=== PATIENT | female | born 1945 | race Caucasian/White ===

== ENCOUNTER 2020-07-18 09:47 | Emergency (ER) | payer MEDICARE, OTHER, SELFPAY ==
[2020-07-18] VITALS (12 sets, daily range): BP systolic 162–199; BP diastolic 70–95; PULSE 68–96; RESP 10–26; TEMP 36.9; O2SAT 97–100; BMI 33.3
--- NOTE | 2020-07-18 09:49 | DI.RAD.S_ITS ---
PROCEDURE: XR CHEST 1V INDICATIONS: Shortness of breath TECHNIQUE: One view of the chest was acquired. COMPARISON: [facility], , CHEST 2 VIEW, 01/06/2016, 16:23. FINDINGS: Surgical changes and devices: None. Lungs and pleura: No pleural effusions or pneumothorax. No acute consolidation. 1.2 cm nodule projects in the left upper lobe Mediastinum: Mediastinal contours appear normal. Heart size is normal. Bones and chest wall: No suspicious bony lesions. Overlying soft tissues appear unremarkable. IMPRESSION: No acute disease. 1.2 cm nodule projecting in the left upper lobe. Recommend further evaluation with CT chest. This could reflect early malignancy or metastatic disease. Dictated by: Konstantin Perez M.D. on 07/18/2020 at 10:38 Approved by: Konstantin Perez M.D. on 07/18/2020 at 10:40
--- NOTE | 2020-07-18 09:58 | ED.GENADULT ---
HPI - General Adult General Chief complaint: Shortness of Breath/Dyspnea Stated complaint: TROUBLE BREATHING, BP GOTTA BE SHANTEL HIGH Time Seen by Provider: 07/18/20 09:48 Source: patient Mode of arrival: Ambulatory Limitations: no limitations History of Present Illness HPI narrative: Patient is a 74-year-old female who states she has no diagnosed medical problems who also does not have a primary care provider here for evaluation of several days/weeks of worsening shortness of breath that is actually been going on for several weeks/months. She denies any fevers. Does have a cough but this is not new for her. This morning she states that she was feeling like her heart was beating fast and she thought that her blood pressure was elevated so she decided to come in this morning for evaluation. She states that she has been thinking about coming to the emergency department for the past couple days and just decided to do so this morning. Related Data Home Medications Medication Instructions Recorded Confirmed beclomethasone dipropionate [Qvar] 2 puff IH BID #0 10/23/15 cyclobenzaprine 10 mg PO SEE INSTRUCTIONS #0 10/23/15 diclofenac sodium 75 mg PO BIDP PRN #0 10/23/15 diltiazem HCl 90 mg PO BID #0 10/23/15 triamterene-hydrochlorothiazid 0.5 cap PO QDAY #0 10/23/15 [Dyazide] Previous Rx's Medication Instructions Recorded P-EPHED HCL/CODEINE/GUAIFEN 5 ml PO QID #200 ml 01/06/16 (Cheratussin DAC) albuterol sulfate [Proventil HFA] 1 puff INH QID #1 inh 01/06/16 albuterol sulfate [Ventolin HFA] 2 puff INH QID #1 ea 03/24/17 azithromycin [Zithromax] 250 - 500 mg PO QDAY #6 tab 03/24/17 beclomethasone dipropionate [Qvar] 1 puff INH BID #1 inh 03/24/17 albuterol sulfate 2 puff INHALATION Q4-6H PRN #18 g 07/18/20 beclomethasone dipropionate [Qvar 1 inh INHALATION BID #10.6 g 07/18/20 RediHaler] lisinopril 10 mg PO DAILY #30 tab 07/18/20 lorazepam [Ativan] 0.5 mg PO BID PRN #10 tab 07/18/20 Allergies Allergy/AdvReac Type Severity Reaction Status Date / Time No Known Drug Allergies Allergy Verified 07/18/20 10:30 Review of Systems Constitutional Constitutional: Denies headache(s) Eyes Eyes: Denies change in vision ENT Ears, Nose, Mouth, and Throat: Denies headache(s) and Denies sore throat Cardiovascular Cardiovascular: Denies chest pain and Reports dyspnea Comments: Feels like her heart was beating hard Respiratory Respiratory: Reports cough (Not new) and Reports dyspnea Gastrointestinal Gastrointestinal: Denies abdominal pain, Reports constipation, Denies nausea and Denies vomiting Genitourinary Genitourinary: Denies dysuria Genitourinary: Denies dysuria Musculoskeletal Comments: Bilateral leg swelling with left being greater than right Integumentary/Breasts Comments: Redness to the left lower extremity a comes and goes Neurologic Neurologic: Denies headache(s) Psychiatric Comments: Anxious about what is going on Hematologic/Lymphatic On Anticoagulants: No Patient History Medical History Patient denies medical problems Surgical History (Updated 07/13/17 @ 05:46 by Conversion Provider) History of cataract removal with insertion of prosthetic lens History of third molar tooth extraction Status post LASIK surgery Family History (Updated 10/23/15 @ 00:00 by Conversion Provider) Sister Age: 77 Hypertension Social History lives independently: Yes Smoking Status: Current every day smoker Exam Initial Vital Signs Initial Vital Signs: Vital Signs Temperature 98.5 F 07/18/20 09:57 Pulse Rate 96 H 07/18/20 09:57 Respiratory Rate 20 07/18/20 09:57 Blood Pressure 199/95 H 07/18/20 09:57 Pulse Oximetry 100 07/18/20 09:57 Const General: cooperative Limitations: mental status not altered HENMT Head: normal to inspection and normocephalic Eyes General: appearance normal, both eyes and all related structures Resp Effort & Inspection: normal respiratory effort Auscultation: clear to auscultation bilaterally Cardio Rate: regular rate Rhythm: regular rhythm GI Inspection: non-distended Skin Other: Patient with mild redness on the distal portion of the left anterior frankel Neuro General: patient alert and patient awake Cognition: normal cognition Speech: speech normal Gait: normal gait Extrem General: capillary refill normal Other: Patient does have bilateral lower extremity swelling with 1+ pitting edema left greater than right Psych Appearance: grossly normal and well kempt Course Orders Ordered: ED Orders 07/18/20 09:49 XR chest 1V Stat EKG-12 Lead Stat 07/18/20 10:04 Complete Blood Count AUTO DIFF Stat Comprehensive Metabolic Panel Stat Lipase Stat NT-proBNP (BNP-Adult 18+) Stat Troponin & CK Cardiac Panel Stat 07/18/20 11:10 CT chest w con Stat Discontinued Medications Lorazepam (Lorazepam 0.5 Mg Tablet) 1 mg PO NOW ONE Stop: 07/18/20 13:06 Last Admin: 07/18/20 13:10 Dose: 1 mg Documented by: HONG Vital Signs Vital signs: Vital Signs - 8 hr 07/18/20 09:57 07/18/20 10:12 07/18/20 10:30 Temperature 98.5 F Pulse Rate 96 H 76 74 Respiratory Rate 20 17 20 Blood Pressure 199/95 H Pulse Oximetry 100 99 98 07/18/20 10:31 07/18/20 11:00 07/18/20 11:01 Temperature Pulse Rate 73 75 77 Respiratory Rate 16 15 26 H Blood Pressure 166/70 H 189/84 H Pulse Oximetry 97 99 99 07/18/20 11:19 07/18/20 11:30 07/18/20 12:00 Temperature Pulse Rate 80 72 70 Respiratory Rate 10 L 11 L 18 Blood Pressure 177/76 H 164/73 H Pulse Oximetry 97 99 98 07/18/20 12:01 07/18/20 12:30 07/18/20 13:30 Temperature Pulse Rate 70 68 76 Respiratory Rate 14 15 Blood Pressure 162/90 H 174/76 H 188/87 H Pulse Oximetry 98 99 98 Medical Decision Making Lab Data Lab results reviewed: Yes I reviewed the patient's lab results. Result diagrams: 07/18/20 10:04 07/18/20 10:04 Labs: Lab Results 07/18/20 07/18/20 Range/Units 10:04 10:04 WBC 9.0 (4.5-11.0) X10^3/uL RBC 4.69 (4.0-5.2) X10^6/uL Hgb 14.5 (12.0-16.0) g/dL Hct 41.8 (36-46) % MCV 89.2 (80-100) fL MCH 30.8 (26-34) PG MCHC 34.6 (30-36) % RDW 13.8 (11.6-14.8) % Plt Count 402 H (150-400) X10^3/uL Neut % (Auto) 60.7 (50-75) % Lymph % (Auto) 31.3 (25-40) % Iron % (Auto) 4.8 (3-14) % Eos % (Auto) 2.5 (2-4) % Baso % (Auto) 0.7 (0-2) % Neut # (Auto) 5400 (7544-1095) /uL Lymph # (Auto) 2800 (4882-4464) /uL Iron # (Auto) 400 (0-900) /uL Eos # (Auto) 200 (0-450) /uL Baso # (Auto) 100 (0-100) /uL Sodium 140 (137-145) mmol/L Potassium 3.9 (3.4-5.1) mmol/L Chloride 106 (98-107) mmol/L Carbon Dioxide 27 (22-32) mmol/L BUN 16 (7-17) mg/dL Creatinine 0.73 (0.52-1.04) mg/dL Estimated GFR > 60.0 (>60) mL/min BUN/Creatinine Ratio 21.9 (6-22) Glucose 124 H (80-110) mg/dL Calcium 9.3 (8.4-10.2) mg/dL Total Bilirubin 0.3 (0.2-1.3) mg/dL AST 34 (14-36) IU/L ALT 26 (<35) IU/L Alkaline Phosphatase 92 (38-126) U/L Total Creatine Kinase 205 H (30-135) U/L CK-MB (CK-2) 3.36 H (<2.37) ng/mL CK-MB (CK-2) Rel Index 1.6 (1.5-5.0) % Troponin I < 0.012 (0.01-0.034) ng/mL NT-Pro-B Natriuret Pep 97 (<125) pg/mL Total Protein 7.6 (6.3-8.2) g/dL Albumin 4.2 (3.5-5.0) g/dL Globulin 3.4 (1.7-4.1) g/dL Albumin/Globulin Ratio 1.2 (1.0-2.8) Lipase 61 (23-300) U/L Imaging Data Chest x-ray: Radiologist's Impression: [address] [id number] ReportSigned Patient: Michelle Devine#: [id number]: 1945cct:[id number]/Sex: 74 / FDate of Service: 07/18/20Loc: EDAccession Number: [id number] Procedure: XR chest 1V Ordering Provider: Sudeep Macias D.O. PROCEDURE: XR CHEST 1V INDICATIONS: Shortness of breath TECHNIQUE: One view of the chest was acquired. COMPARISON: [facility], CHEST 2 VIEW, 01/06/2016, 16:23. FINDINGS: Surgical changes and devices: None. Lungs and pleura: No pleural effusions or pneumothorax. No acute consolidation. 1.2 cm nodule projects in the left upper lobe Mediastinum: Mediastinal contours appear normal. Heart size is normal. Bones and chest wall: No suspicious bony lesions. Overlying soft tissues appear unremarkable. IMPRESSION: No acute disease. 1.2 cm nodule projecting in the left upper lobe. Recommend further evaluation with CT chest. This could reflect early malignancy or metastatic disease. Dictated by: Konstantin Perez M.D. on 07/18/2020 at 10:38 Approved by: Konstantin Perez M.D. on 07/18/2020 at 10:40 CT scan - chest: Radiologist's Impression: [address] [id number] Scan ReportSigned Patient: Michelle Devine#: [id number]: 7Acct:[id number]/Sex: 74 / FDate of Service: 07/18/20Loc: EDAccession Number: [id number] Procedure: CT chest w con Ordering Provider: Sudeep Macias D.O. PROCEDURE: CT CHEST W CON INDICATIONS: nodule seen on CXR TECHNIQUE: After the administration of intravenous contrast, 5 mm thick sections acquired from the pulmonary apices to the posterior costophrenic angles. 1 mm axial lung, 5 mm thick coronal and sagittal reformats and 7 mm axial MIP were acquired. For radiation dose reduction, the following was used: automated exposure control, adjustment of mA and/or kV according to patient size. COMPARISON: [facility], CR, XR CHEST 1V, 07/18/2020, 9:52. FINDINGS: Lungs: Diffuse emphysema is seen. Scattered subsegmental atelectasis and/or scarring. No focal consolidation. Airway thickening in keeping with nonspecific bronchitis and/or reactive airways disease. 1.4 cm nodule seen in the left upper lobe corresponding to the radiographic appearance. Pleura: No pleural effusion or pneumothorax. Heart: Heart size is normal. No pericardial effusion. Moderate coronary artery catheter sclerosis. Chest nodes: Normal. Thyroid gland: Negative Aorta: Normal. Pulmonary arteries: Normal Esophagus: Possible trace hiatal hernia. Upper abdomen: Hepatic steatosis Bones: Normal. IMPRESSION: 1.4 cm in left upper lobe pulmonary nodule in keeping with the radiographic appearance. This is suspicious for bronchogenic malignancy. Background chronic emphysema. Dictated by: Konstantin Perez M.D. on 07/18/2020 at 12:14 Approved by: Konstantin Perez M.D. on 07/18/2020 at 12:20 ECG Data Attestation: I personally reviewed and interpreted this ECG as follows: Prior ECG tracings: not available for review Interpretation: Sinus rhythm Ventricular rate is 76 Normal axis Normal QRS Normal QTC No ST T wave changes MDM Narrative Medical decision making narrative: Patient was hypertensive and remained hypertensive during her time here in the emergency department. Because of this I do feel that he to start her on antihypertensive medication. She does not carry a definitive diagnosis of COPD but does have a significant smoking history. She has been on QVAR and albuterol in the past which he states has helped her symptoms that she would like to go back on this medication. It will provide a prescription for these as well. I have low suspicion for ACS. Her chest x-ray today was concerning for a right-sided nodule on the CT scan is also concerning for malignancy. She does not have a primary doctor. I did talk with the primary care group here in the area and they are going to contact her with primary doctor in a follow-up within the next couple days. I discussed this with the patient and she was also provided with air information. I feel patient could be discharged home she was informed of the concerns found on the CT scan. She was given return precautions and follow-up instructions. She expressed understanding agreement. Discharge Plan Departure Patient Disposition: Home Clinical Impression: Hypertension, Shortness of breath, Lung nodule Instructions: Essential Hypertension Activity Restrictions/Additional Instructions: I did discuss her case with the [facility]. Their phone number is [phone]. They should be calling you within the next several days to get you in to see a new primary provider. This is important given the findings that we found on the CT scan today. Medications were sent to the [facility] here and [place]. Take them as directed. Take her blood pressure at home like we discussed. Return to the emergency department for any new or worsening symptoms. Prescriptions: New Qvar RediHaler 80 mcg/actuation HFA aerosol breath activated 1 inh inhalation BID Qty: 10.6 RF: 0 albuterol sulfate 90 mcg/actuation HFA aerosol inhaler 2 puff inhalation Q4-6H PRN (Reason: shortness of breath or wheezing) Qty: 18 RF: 0 lorazepam [Ativan] 0.5 mg tablet 0.5 mg PO BID PRN (Reason: anxiety) Qty: 10 RF: 0 lisinopril 10 mg tablet 10 mg PO DAILY Qty: 30 RF: 0 No Action triamterene-hydrochlorothiazid [Dyazide] 37.5 MG/25 MG capsule 0.5 cap PO QDAY Qty: 0 RF: 0 beclomethasone dipropionate [Qvar] 80 MCG/PUFF aerosol 2 puff IH BID Qty: 0 RF: 0 diltiazem HCl 90 MG capsule,extended release 12 hr 90 mg PO BID Qty: 0 RF: 0 diclofenac sodium 75 MG tablet,delayed release (DR/EC) 75 mg PO BIDP PRNQty: 0 RF: 0 cyclobenzaprine 10 MG tablet 10 mg PO SEE INSTRUCTIONS Qty: 0 RF: 0 albuterol sulfate [Proventil HFA] 90 MCG/PUFF HFA aerosol inhaler 1 puff INH QID Qty: 1 RF: 1 P-EPHED HCL/CODEINE/GUAIFEN (Cheratussin DAC) 5 ml PO QID Qty: 200 RF: 0 azithromycin [Zithromax] 250 MG tablet 250 - 500 mg PO QDAY Qty: 6 RF: 0 beclomethasone dipropionate [Qvar] 80 MCG/PUFF aerosol 1 puff INH BID Qty: 1 RF: 0 albuterol sulfate [Ventolin HFA] 90 MCG/PUFF HFA aerosol inhaler 2 puff INH QID Qty: 1 RF: 0
[2020-07-18 10:15] LABS: Add Manual Diff / Slide Review NO; Basophils Absolute Auto 100 /uL (0-100); Basophils Percent Auto 0.7 % (0-2); Eosinophils Absolute Auto 200 /uL (0-450); Eosinophils Percent Auto 2.5 % (2-4); Hematocrit 41.8 % (36-46); Hemoglobin 14.5 g/dL (12.0-16.0); Lymphocytes Absolute Auto 2800 /uL (1100-4500); Lymphocytes Percent Auto 31.3 % (25-40); Mean Corpuscular HGB Conc 34.6 % (30-36); Mean Corpuscular Hemoglobin 30.8 PG (26-34); Mean Corpuscular Volume 89.2 fL (80-100); Monocytes Absolute Auto 400 /uL (0-900); Monocytes Percent Auto 4.8 % (3-14); Neutrophils Absolute Auto 5400 /uL (1500-7000); Neutrophils Percent Auto 60.7 % (50-75); Platelet Count 402 X10^3/uL (150-400); Red Blood Cell Count 4.69 X10^6/uL (4.0-5.2); Red Cell Distribution Width 13.8 % (11.6-14.8)
[2020-07-18 10:26] LABS: Alanine Aminotransferase 26 IU/L (<35); Albumin 4.2 g/dL (3.5-5.0); Albumin Globulin Ratio 1.2 (1.0-2.8); Alkaline Phosphatase 92 U/L (38-126); Aspartate Aminotransferase 34 IU/L (14-36); BUN Creatinine Ratio 21.9 (6-22); Bilirubin Total 0.3 mg/dL (0.2-1.3); Blood Urea Nitrogen 16 mg/dL (7-17); Calcium 9.3 mg/dL (8.4-10.2); Carbon Dioxide 27 mmol/L (22-32); Chloride 106 mmol/L (98-107); Creatine Kinase 205 U/L (30-135); Estimated Glomerular Filt Rate > 60.0 mL/min (>60); Globulin 3.4 g/dL (1.7-4.1); Glucose 124 mg/dL (80-110); HEMOLYSIS < 15 (0-50); Lipase 61 U/L (23-300); Potassium 3.9 mmol/L (3.4-5.1); Sodium 140 mmol/L (137-145); Total Protein 7.6 g/dL (6.3-8.2)
[2020-07-18 10:38] LABS: NT-proBNP (BNP-Adult 18+) 97 pg/mL (<125); Troponin I < 0.012 ng/mL (0.01-0.034)
[2020-07-18 10:42] LABS: CKMB % Relative Index 1.6 % (1.5-5.0); Creatine Kinase MB 3.36 ng/mL (<2.37)
--- NOTE | 2020-07-18 11:10 | DI.CT.S_ITS ---
PROCEDURE: CT CHEST W CON INDICATIONS: nodule seen on CXR TECHNIQUE: After the administration of intravenous contrast, 5 mm thick sections acquired from the pulmonary apices to the posterior costophrenic angles. 1 mm axial lung, 5 mm thick coronal and sagittal reformats and 7 mm axial MIP were acquired. For radiation dose reduction, the following was used: automated exposure control, adjustment of mA and/or kV according to patient size. COMPARISON: [facility], CR, XR CHEST 1V, 07/18/2020, 9:52. FINDINGS: Lungs: Diffuse emphysema is seen. Scattered subsegmental atelectasis and/or scarring. No focal consolidation. Airway thickening in keeping with nonspecific bronchitis and/or reactive airways disease. 1.4 cm nodule seen in the left upper lobe corresponding to the radiographic appearance. Pleura: No pleural effusion or pneumothorax. Heart: Heart size is normal. No pericardial effusion. Moderate coronary artery catheter sclerosis. Chest nodes: Normal. Thyroid gland: Negative Aorta: Normal. Pulmonary arteries: Normal Esophagus: Possible trace hiatal hernia. Upper abdomen: Hepatic steatosis Bones: Normal. IMPRESSION: 1.4 cm in left upper lobe pulmonary nodule in keeping with the radiographic appearance. This is suspicious for bronchogenic malignancy. Background chronic emphysema. Dictated by: Konstantin Perez M.D. on 07/18/2020 at 12:14 Approved by: Konstantin Perez M.D. on 07/18/2020 at 12:20
[2020-07-18] MEDS: LORazepam 0.5 MG TABLET 1 MG PO (13:10)
== END 2020-07-18 13:30 | disposition home or self-care (01) ==
PROVIDERS: Emergency Provider Emergency Medicine
DX: I10 Essential (primary) hypertension (principal); R05 Cough; R06.02 Shortness of breath; R91.1 Solitary pulmonary nodule
CPT/HCPCS: 36415; 71045; 71260; 80053; 82550; 82553; 83690; 83880; 84484; 85025; 93005; 99283; 99284

== ENCOUNTER 2020-07-25 12:19 | Emergency (ER) | payer MEDICARE, OTHER, SELFPAY ==
[2020-07-25 12:25] VITALS: BP 163/74; PULSE 91; RESP 14; TEMP 37; O2SAT 98; BMI 33.5
[2020-07-25 12:48] VITALS: BP 146/67
== END 2020-07-25 14:13 | disposition left against medical advice (07) ==
PROVIDERS: Emergency Provider Emergency Medicine; PCP Student in an Organized Health Care Education/Training Program
CPT/HCPCS: 99281

== ENCOUNTER → 2020-07-31 09:46 | Outpatient (CLI) | payer MEDICARE, OTHER, SELFPAY | PROVIDERS: PCP Student in an Organized Health Care Education/Training Program; Referring Provider Student in an Organized Health Care Education/Training Program; Visit Provider Student in an Organized Health Care Education/Training Program | DX: M85.851 Other specified disorders of bone density and structure, right thigh (principal); Z13.820 Encounter for screening for osteoporosis; Z78.0 Asymptomatic menopausal state; Z72.0 Tobacco use | CPT/HCPCS: 77080 ==

== ENCOUNTER → 2020-08-30 08:50 | Outpatient (CLI) | payer MEDICARE, OTHER, SELFPAY ==
[2020-08-30 10:02] LABS: COVID19 -Nasal RAPID Negative (Negative)
== END ==
PROVIDERS: PCP Student in an Organized Health Care Education/Training Program; Referring Provider Student in an Organized Health Care Education/Training Program; Visit Provider Student in an Organized Health Care Education/Training Program
DX: Z20.822 Contact with and (suspected) exposure to COVID-19 (principal)
CPT/HCPCS: 87635; C9803

== ENCOUNTER → 2020-08-30 09:47 | Outpatient (CLI) | payer MEDICARE, OTHER, SELFPAY ==
[2020-08-30 11:41] LABS: BUN Creatinine Ratio 25.7 (6-22); Blood Urea Nitrogen 26 mg/dL (7-17); Calcium 10.1 mg/dL (8.4-10.2); Carbon Dioxide 28 mmol/L (22-32); Chloride 102 mmol/L (98-107); Cholesterol 176 mg/dL (140-199); Estimated Glomerular Filt Rate 53.6 mL/min (>60); Glucose 118 mg/dL (80-110); HDL Cholesterol 55 mg/dL (40-60); HEMOLYSIS < 15 (0-50); LDL Cholesterol Calculated 101 mg/dL (<100); Potassium 4.3 mmol/L (3.4-5.1); Sodium 137 mmol/L (137-145); Triglycerides 101 mg/dL (35-150)
== END ==
PROVIDERS: PCP Student in an Organized Health Care Education/Training Program; Referring Provider Student in an Organized Health Care Education/Training Program; Visit Provider Student in an Organized Health Care Education/Training Program
DX: I10 Essential (primary) hypertension (principal); Z13.220 Encounter for screening for lipoid disorders
CPT/HCPCS: 36415; 80048; 80061

== ENCOUNTER → 2020-08-30 09:51 | Outpatient (CLI) | payer MEDICARE, OTHER, SELFPAY ==
--- NOTE | 2020-09-06 08:40 | PM.PFT.1 ---
Pulmonary Function Test Referral & Results Date Patient Seen: 08/30/20 Requesting provider: Pj Grubbs Results: The spirometry demonstrates an FVC of 3.19 L which is 102% of predicted. The FEV1 was measured at 1.49 L which is 63% of predicted. The FEV1/FVC ratio was 47 which is 62% of predicted. Following the administration of bronchodilator there was a 20% improvement in FEF 25-75%. Lung volumes show an SVC of 3.78 L which is 126% of predicted. The diffusing capacity was measured at 23.03 which is 85% of predicted. The maximum voluntary ventilation was reduced Interpretation: This study demonstrates moderate severe obstructive lung disease based on reduction FEV1 and FEV1/FVC ratio. There is only very limited evidence of benefit following bronchodilator based on 20% improvement in FEF 25-75% as above suggesting only small airway improvement Lung volumes are normal There is a minimal reduction diffusing capacity suggesting the possibility of disease at the capillary alveolar level as well Clinical correlation suggested
== END ==
PROVIDERS: PCP Student in an Organized Health Care Education/Training Program; Referring Provider Student in an Organized Health Care Education/Training Program; Visit Provider Student in an Organized Health Care Education/Training Program
DX: R06.02 Shortness of breath (principal); J98.8 Other specified respiratory disorders; Z13.220 Encounter for screening for lipoid disorders; I10 Essential (primary) hypertension; F17.210 Nicotine dependence, cigarettes, uncomplicated; Z20.822 Contact with and (suspected) exposure to COVID-19
CPT/HCPCS: 36415; 80048; 80061; 87635; 94060; 94726; 94729; C9803

== ENCOUNTER 2020-09-02 08:03 | Day surgery (SDC) | payer MEDICARE, OTHER, SELFPAY ==
[2020-09-02 09:20] VITALS: BP 108/70; PULSE 96; RESP 16; TEMP 36.5; O2SAT 98; BMI 33.5
[2020-09-02] MEDS: LACTATED RINGERS 1,000 ML 200 ML IV (09:29)
--- NOTE | 2020-09-02 10:27 | PM.HP.1 ---
History of Present Illness History of Present Illness Date Patient Seen: 09/02/20 Time Patient Seen: 10:27 Chief complaint: SDC Narrative: The patient presents for colorectal sreening. She had a previous colonoscopy greater than 10 years ago which was significant for benign polyps.. No personal or family history of colon cancer. On further history denies any recent gastrointestinal symptoms. No nausea, vomiting, abdominal pain, loss of appetite, unexplained weight loss, change in bowel habits, diarrhea, constipation, melena, hematochezia, or bright red blood per rectum. Patient History Medical History Abnormal chest xray Acne Asthma Chicken pox Chronic cough Measles Mumps Patient denies medical problems Plantar warts (~2018) Surgical History History of cataract removal with insertion of prosthetic lens (~1998) History of third molar tooth extraction Skin cancer, basal cell (~2014) Status post LASIK surgery Family & Social History Family History Sister Age: 77 Hypertension Mother Diabetes mellitus History of heart disease Social History: household members none lives independently Yes Tobacco & Substance use: Tobacco type cigarettes Smoking Status Current every day smoker alcohol intake current alcohol intake frequency holiday/special occasion Substance Use Type does not use Meds Home Medications and Allergies Home Medications Medication Instructions Recorded Confirmed Type cyclobenzaprine 10 mg PO SEE INSTRUCTIONS #0 10/23/15 09/02/20 History diclofenac sodium 75 mg 75 mg PO QWEEK PRN #0 tab MDD 177 07/22/20 09/02/20 History tablet,delayed release ml lisinopril 20 mg tablet 20 mg PO BID #180 tab 08/14/20 09/02/20 Rx lorazepam 0.5 mg tablet 0.5 mg PO BID PRN #30 tab 08/15/20 09/02/20 Rx beclomethasone dipropionate 80 1 inh INHALATION BID #10.6 g 08/19/20 09/02/20 Rx mcg/actuation HFA breath activated aerosol albuterol sulfate 90 mcg/actuation 2 puff INHALATION Q4-6H PRN #18 g 08/26/20 09/02/20 Rx aerosol inhaler buspirone 10 mg tablet 10 mg PO BID #60 tab 08/26/20 09/02/20 Rx Allergies Allergy/AdvReac Type Severity Reaction Status Date / Time No Known Drug Allergies Allergy Verified 09/02/20 09:08 Review of Systems Review of Systems ROS: Yes All systems reviewed with the patient and are negative except as otherwise documented Exam Vital Signs (past 8 hours): - 09/02/20 09:20 Temperature 97.7 F Pulse Rate 96 H Respiratory Rate 16 Blood Pressure 108/70 Pulse Oximetry 98 Oxygen Delivery Method Room Air Narrative Exam Narrative: GENERAL-well developed adult female, no acute distress HEENT-no scleral icterus, hearing intact NECK-no JVD, trachea midline CVS- regular rate, no peripheral edema RESP-unlabored respiratory effort, no audible wheezing GI-soft, nontender nondistended MSK-no cyanosis or clubbing, extremities without deformity SKIN-warm, dry NEURO-alert and oriented, no focal deficits PYSCH-Appropriate mood and affect Assessment & Plan Assessment & Plan narrative: The patient requires colorectal screening and colonoscopy is recommended. Technical details were discussed. Risks, benefits, alternatives explained. Risks including but not limited to myocardial infarction, aspiration, bleeding, pain, missed lesion, incomplete examination, need for further radiographic studies, colonic perforation, and need for major abdominal surgery were discussed. All questions were answered to their satisfaction, and they are in agreement with this plan.
[2020-09-02] MEDS: fentaNYL 250 MCG/5 ML INJ IV (10:40)
[2020-09-02] MEDS: MIDAZOLAM 5 MG/5 ML VIAL IV (10:45)
--- NOTE | 2020-09-02 10:58 | PM.OP.ENDO ---
Operative Date/Time/Diagnoses Date of procedure: 09/02/20 Time of procedure: 10:58 Pre-op diagnosis: personal history of colonic polyps Post-op diagnosis: same Procedure & Clinicians Study performed: colonoscopy Same procedure as scheduled: Yes Indications: personal history of colonic polyps Surgeon: Austyn Lee Procedure Notes Procedure in detail: Medications: Conscious sedation using 9mg IV midazolam and 150mcg IV of fentanyl The history and physical was performed/updated and the patient is ASA class is 2. The procedure was discussed in detail with the patient. Potential risks complications including infection, bleeding, missed diagnosis, perforation, need for surgery, and were explained. Their questions were answered and informed consent was obtained. Patient was brought to the procedure room and placed standard monitoring equipment. The patient's vital signs were monitored continuously throughout the entire procedure. Prior to starting time-out was performed. The patient was placed in the left lateral recumbent position. Procedural sedation was administered. Examination began with a thorough inspection of the perianal area there was no evidence of fissures, fistulae, external hemorrhoids or cutaneous malignancy. The colonoscopy scope was then placed into the anal canal and was advanced to the cecum, which was identified by the ileocecal valve, the appendiceal orifice and the confluence of the taenia. The scope was then slowly withdrawn examining colon thoroughly in all directions, irrigating it of any residual stool. 1. no masses or polyps 2. sigmoid diverticulosis, tortuous colon 3. grade 2 hemorrhoids The patient tolerated the procedure well. They will be discharged once criteria are met. The prep was of good/excellent quality. The withdrawl time was 6 minutes. The sedation time was 20 minutes. Specimen(s): none sent Complications: none Impression: normal colonoscopy Post-procedure Recommendations: Colonscopy in 10 years Disposition: same day surgery
[2020-09-02 11:00] VITALS: BP 103/45; PULSE 78; RESP 16; TEMP 36.3; O2SAT 98
[2020-09-02 11:05] VITALS: BP 106/47; PULSE 78; RESP 15; O2SAT 94
[2020-09-02 11:08] VITALS: BP 102/44; PULSE 79; RESP 12; O2SAT 96
[2020-09-02 11:15] VITALS: BP 92/43; PULSE 77; RESP 13; TEMP 36.2; O2SAT 99
[2020-09-02 11:18] VITALS: BP 98/47; PULSE 76; RESP 16; TEMP 36.5; O2SAT 98
== END 2020-09-02 11:40 | disposition home or self-care (01) ==
PROVIDERS: PCP Student in an Organized Health Care Education/Training Program; Referring Provider Surgery; Visit Provider Surgery
PROC: 0DJD8ZZ Inspection of Lower Intestinal Tract, Via Natural or Artificial Opening Endoscopic (ICD-10-PCS; CPT 45378; principal; 2020-09-02 10:00)
DX: Z12.11 Encounter for screening for malignant neoplasm of colon (principal); Z86.010 Personal history of colon polyps; J45.909 Unspecified asthma, uncomplicated; K57.30 Diverticulosis of large intestine without perforation or abscess without bleeding; K64.1 Second degree hemorrhoids
CPT/HCPCS: G0105; 99152; J2250; J3010

== ENCOUNTER → 2020-09-11 10:04 | Outpatient (CLI) | payer MEDICARE, OTHER, SELFPAY ==
--- NOTE | 2020-09-11 10:05 | DI.MG.S_ITS ---
BILATERAL DIGITAL SCREENING MAMMOGRAM 3D/2D WITH CAD: 09/11/2020 CLINICAL: Routine screening. No prior exams were available for comparison. The tissue of both breasts is heterogeneously dense. This may lower the sensitivity of mammography. Current study was also evaluated with a Computer Aided Detection (CAD) system. There are linear segmental fine punctate calcifications in the left breast central to the nipple middle depth. No other significant masses, calcifications, or other findings are seen in either breast. IMPRESSION: INCOMPLETE: NEEDS ADDITIONAL IMAGING EVALUATION The linear segmental fine punctate calcifications in the left breast are indeterminate. Mediolateral, spot magnification, and additional views are recommended. This exam was interpreted at Station ID: [id number]. NOTE: For mammograms, a report in lay terms will be sent to the patient. Approximately 15% of breast malignancies will not be visualized mammographically. In the management of a palpable breast mass, a negative mammogram must not discourage biopsy of a clinically suspicious lesion. Electronically Signed By: Levon gross/meenu:09/11/2020 10:50:07 letter sent: Additional Imaging Needed ACR BI-RADS Category 0: Incomplete [id number]
== END ==
PROVIDERS: PCP Student in an Organized Health Care Education/Training Program; Referring Provider Student in an Organized Health Care Education/Training Program; Visit Provider Student in an Organized Health Care Education/Training Program
DX: Z12.31 Encounter for screening mammogram for malignant neoplasm of breast (principal)
CPT/HCPCS: 77063; 77067

== ENCOUNTER → 2020-10-03 08:40 | Outpatient (CLI) | payer MEDICARE, OTHER, SELFPAY ==
--- NOTE | 2020-10-03 | DI.MG.S_ITS ---
UNILATERAL LEFT DIGITAL DIAGNOSTIC MAMMOGRAM 3D/2D WITH ADDITIONAL VIEWS: 10/03/2020 CLINICAL: Additional evaluation requested from prior study. Comparison is made to exam dated: 09/11/2020 [facility]. The tissue of left breast is heterogeneously dense. This may lower the sensitivity of mammography. There are segmental scattered, fine punctate, some rodlike calcifications in the left breast central to the nipple middle depth. No other significant masses or calcifications are seen in the breast. IMPRESSION: PROBABLY BENIGN The calcifications in the left breast resemble secretory calcifications, fibrocystic change, and sclerosing adenosis and are probably benign. A follow-up left mammogram in 6 months is recommended to demonstrate stability. Findings and recommendations were conveyed to the patient at time of exam. This exam was interpreted at Station ID: [id number]. NOTE: For mammograms, a report in lay terms will be sent to the patient. Approximately 15% of breast malignancies will not be visualized mammographically. In the management of a palpable breast mass, a negative mammogram must not discourage biopsy of a clinically suspicious lesion. Electronically Signed By: Lilliana fajardo/:10/03/2020 09:08:14 letter sent: Followup Recommended ACR BI-RADS Category 3: Probably benign 3343F
== END ==
PROVIDERS: PCP Student in an Organized Health Care Education/Training Program; Referring Provider Student in an Organized Health Care Education/Training Program; Visit Provider Student in an Organized Health Care Education/Training Program
DX: R92.8 Other abnormal and inconclusive findings on diagnostic imaging of breast (principal); R92.1 Mammographic calcification found on diagnostic imaging of breast
CPT/HCPCS: 77065; G0279

== ENCOUNTER → 2021-07-10 11:56 | Outpatient (CLI) | payer MEDICARE, OTHER, SELFPAY ==
[2021-07-10 13:32] LABS: Hemoglobin A1C% w Est Avg Glu 6.2 % (4.0-6.0)
[2021-07-10 13:37] LABS: BUN Creatinine Ratio 27.7 (6-22); Blood Urea Nitrogen 23 mg/dL (7-17); Calcium 9.2 mg/dL (8.4-10.2); Carbon Dioxide 28 mmol/L (22-32); Chloride 107 mmol/L (98-107); Cholesterol 192 mg/dL (140-199); Estimated Glomerular Filt Rate > 60 mL/min (>60); Glucose 102 mg/dL (80-110); HDL Cholesterol 59 mg/dL (40-60); HEMOLYSIS < 15 (0-50); LDL Cholesterol Calculated 118 mg/dL (<100); Potassium 4.1 mmol/L (3.4-5.1); Sodium 140 mmol/L (137-145); Triglycerides 76 mg/dL (35-150)
== END ==
PROVIDERS: PCP Student in an Organized Health Care Education/Training Program; Referring Provider Student in an Organized Health Care Education/Training Program; Visit Provider Student in an Organized Health Care Education/Training Program
DX: E78.2 Mixed hyperlipidemia (principal); I10 Essential (primary) hypertension; F32.9 Major depressive disorder, single episode, unspecified
CPT/HCPCS: 36415; 80048; 80061; 83036; 84443

== ENCOUNTER 2021-07-23 08:05 | Emergency (ER) | payer MEDICARE, OTHER, SELFPAY ==
[2021-07-23] VITALS (7 sets, daily range): BP systolic 133–185; BP diastolic 65–82; PULSE 62–81; RESP 15–22; TEMP 36.5; O2SAT 98–100; BMI 31.4
--- NOTE | 2021-07-23 08:35 | ED_ITS ---
HPI - Arrhythmia/Palpitations General Chief Complaint: Arrhythmia/Palpitations Stated Complaint: Rapid heart rate last night-several times recently Time Seen by Provider: 07/23/21 08:22 Source: patient Mode of arrival: Ambulatory History of Present Illness HPI narrative: Patient is a 75-year-old female history of COPD, anxiety, depression presenting today with palpitations. She says that she has had palpitations off and on couple of times. She says that usually loss about 15 minutes and then have goes away. She said last night started around 10:00 p.m. but was not going away. She could see and feel her heart pounding. She had no pain radiation to her jaw. She had no increase in shortness of breath, she denies any orthopnea. She states that she does drink caffeine daily she has 1 cup of coffee in the morning and then for shot express a lot today that she sits on throughout the day. She denies any alcohol use or marijuana use. He said last night she finally was able to go to sleep and now feels better this morning. She has been recording her blood pressures and heart rate as instructed by her primary care provider. Heart rates last night look to be in the 140's. Related Data Home Medications Medication Instructions Recorded Confirmed lisinopril 20 mg tablet 10 mg PO DAILY tab 09/30/20 07/10/21 budesonide-formoterol HFA 80 2 puff INHALATION BID 07/18/21 07/18/21 mcg-4.5 mcg/actuation aerosol inhaler (Symbicort) Previous Rx's Medication Instructions Recorded albuterol sulfate 90 mcg/actuation 2 puff INHALATION Q4-6H PRN #18 g 08/26/20 aerosol inhaler cyclobenzaprine 5 mg tablet 5 mg PO TID PRN #10 tab 09/30/20 diclofenac sodium 75 mg 75 mg PO DAILY PRN #30 tab 09/30/20 tablet,delayed release lorazepam 0.5 mg tablet (Ativan) 0.5 - 1 mg PO DAILY PRN #40 tab 01/07/21 buspirone 10 mg tablet 10 mg PO BID #180 tab 04/29/21 paroxetine HCl 20 mg tablet (Paxil) 20 mg PO DAILY #30 tab 07/10/21 Allergies Allergy/AdvReac Type Severity Reaction Status Date / Time No Known Drug Allergies Allergy Verified 07/10/21 10:49 Review of Systems Review of Systems Narrative: GENERAL: Denies chills, fatigue, malaise, fever, sweats, travel HEENT: Denies sinus pain, ear pain, sore throat, difficulty swallowing, neck pain RESPIRATORY: Denies dyspnea, cough, wheezing, hemoptysis, sputum. CARDIOVASCULAR: See HPI GASTROINTESTINAL: Denies nausea, vomiting, abdominal pain, diarrhea, constipation, melena. : Denies dysuria, frequency, incontinence, hematuria, urinary retention, flank pain. MUSCULOSKELETAL: Denies weakness, joint pain, or bony pain SKIN: No rash, no erythema, no pruritus NEUROLOGIC: Denies weakness, dizziness, headache, numbness, change in speech, confusion PSYCHIATRIC: No concerning psychosocial issues. 12 point review of systems is negative except for those stated above and HPI Patient History Medical History Abnormal chest xray Acne Asthma Chicken pox Chronic cough Measles Mumps Patient denies medical problems Plantar warts (~2018) Surgical History History of cataract removal with insertion of prosthetic lens (~1998) History of third molar tooth extraction Skin cancer, basal cell (~2014) Status post LASIK surgery Family History Sister Age: 78 Hypertension Mother Diabetes mellitus History of heart disease Social History household members: none lives independently: Yes Smoking Status: Current every day smoker alcohol intake: current Smoking Status: Current every day smoker alcohol intake frequency: holidays/special occasions only Substance Use Type: does not use Exam Initial Vital Signs Initial Vital Signs: Vital Signs Pulse Rate 81 07/23/21 08:12 Blood Pressure 185/82 H 07/23/21 08:12 Pulse Oximetry 99 07/23/21 08:12 GENERAL: Alert well-appearing 75-year-old female and in no acute distress. HEENT: Head atraumatic,EOMI, pupils reactive, face symmetric, moist mucous membranes CARDIOVASCULAR: Regular rate and rhythm without murmurs, rubs or gallops. RESPIRATORY: Breath sounds equal bilaterally, no wheezes rales or rhonchi. ABDOMEN: Soft, nontender. Normoactive bowel sounds all 4 quadrants. No guarding or rebound. EXTREMITIES: Normal range of motion, no clubbing or edema. Neurovascularly intact NEUROLOGICAL: Alert and oriented x4.Normal gait and speech. SKIN: Warm, dry, no laceration, no petechiae, no rashes or lesions. Course Orders Ordered: ED Orders 07/23/21 08:15 EKG-12 Lead Routine 07/23/21 08:25 Complete Blood Count AUTO DIFF Stat Comprehensive Metabolic Panel Stat Lipase Stat Magnesium Stat NT-proBNP (BNP-Adult 18+) Stat TSH [Thyroid Stimulating Hormone] Stat Troponin & CK Cardiac Panel Stat 07/23/21 08:37 XR chest 1V Stat Vital Signs Vital signs: Vital Signs - 8 hr 07/23/21 08:21 Temperature 97.7 F Pulse Rate 79 Respiratory Rate 18 Blood Pressure 185/82 H Pulse Oximetry 100 MDM - Arrhythmia/Palpitations Lab Data Result diagrams: 07/23/21 08:25 07/23/21 08:25 Labs: Lab Results 07/23/21 07/23/21 07/23/21 Range/Units 08:25 08:25 08:25 WBC 10.1 (4.5-11.0) X10^3/uL RBC 4.00 (4.0-5.2) X10^6/uL Hgb 12.4 (12.0-16.0) g/dL Hct 36.1 (36-46) % MCV 90.3 (80-100) fL MCH 31.1 (26-34) PG MCHC 34.5 (30-36) % RDW 14.3 (11.6-14.8) % Plt Count 428 H (150-400) X10^3/uL Neut % (Auto) 61.4 (50-75) % Lymph % (Auto) 29.6 (25-40) % Ventura % (Auto) 5.6 (3-14) % Eos % (Auto) 2.5 (2-4) % Baso % (Auto) 0.9 (0-2) % Neut # (Auto) 6200 (2440-7141) /uL Lymph # (Auto) 3000 (7970-1579) /uL Ventura # (Auto) 600 (0-900) /uL Eos # (Auto) 300 (0-450) /uL Baso # (Auto) 100 (0-100) /uL Sodium 137 (137-145) mmol/L Potassium 4.2 (3.4-5.1) mmol/L Chloride 105 (98-107) mmol/L Carbon Dioxide 28 (22-32) mmol/L BUN 18 H (7-17) mg/dL Creatinine 0.84 (0.52-1.04) mg/dL Estimated GFR > 60 (>60) mL/min BUN/Creatinine Ratio 21.4 (6-22) Glucose 106 (80-110) mg/dL Calcium 9.1 (8.4-10.2) mg/dL Magnesium 1.9 (1.6-2.3) mg/dL Total Bilirubin 0.3 (0.2-1.3) mg/dL AST 34 (14-36) IU/L ALT 23 (<35) IU/L Alkaline Phosphatase 79 (38-126) U/L Total Creatine Kinase 263 H (30-135) U/L CK-MB (CK-2) 4.80 H (<2.37) ng/mL CK-MB (CK-2) Rel Index 1.8 (1.5-5.0) % Troponin I < 0.012 (0.01-0.034) ng/mL NT-Pro-B Natriuret Pep 205 H (<125) pg/mL Total Protein 7.2 (6.3-8.2) g/dL Albumin 4.1 (3.5-5.0) g/dL Globulin 3.1 (1.7-4.1) g/dL Albumin/Globulin Ratio 1.3 (1.0-2.8) Lipase 75 (23-300) U/L TSH 3.57 (0.47-4.68) uIU/mL Imaging Data Chest x-ray: Radiologist's Impresson: Signed Patient: Michelle Devine MR#: [id number] : 1945 Acct:[id number] Age/Sex: 75 / F Date of Service: 07/23/21 Loc: Accession Number: [id number] ?? Procedure: XR chest 1V Ordering Provider: Ele Lund D.O. PROCEDURE:? XR CHEST 1V ? INDICATIONS:? palpitations ? TECHNIQUE:? One view of the chest was acquired.? ? COMPARISON:? [facility], [place], PET NECK TO MID THIGH, 10/24/2020, 9:34.? [facility], CT, CT CHEST W CON, 07/18/2020, 11:11.? [facility], CR, XR CHEST 1V, 07/18/2020, 9:52. ? FINDINGS:? ? Surgical changes and devices:? None.? ? Lungs and pleura:? Lungs are clear of acute opacities.? 1.2 centimeter nodule in the left upper lobe is stable compared to prior exams.? No pleural effusions or pneumothorax.? ? Mediastinum:? Mediastinal contours appear normal.? Heart size is normal.? ? Bones and chest wall:? No suspicious bony lesions.? Overlying soft tissues appear unremarkable.? ? IMPRESSION:? No acute cardiopulmonary disease process. ? ? Dictated by: Priscilla Gtz MD, PhD on 07/23/2021 at 9:03 ? ? ECG Data Interpretation: Normal sinus rhythm rate 71 IN interval 138 QRS [address] changes, similar to previous in 2020 MDM Narrative Medical decision making narrative: Patient has had palpitations off and on for a while, blood last night it seemed to be the longus but today she is in normal sinus rhythm. Blood work is overall reassuring. She has been on the monitor in the ED no abnormalities were found. Encouraged her to follow up with her primary care provider for a Holter monitor. Discussed caffeine intake as well and to try and decrease, may or may not be co ntributing. She has no hypoxia or shortness of breath. No indication for this to be a pulmonary issue such as pulmonary embolism or congestive heart failure. X-ray is also clear. Discharge Plan Departure Patient Disposition: Home Clinical Impression: Heart palpitations Activity Restrictions/Additional Instructions: *You have been diagnosed with palpitation *What to do: At this time no abnormality is found. You will need a Holter monitor which can be prescribed by her primary care provider. You may consider trying to cut back caffeine if you have frequent attacks. *Continue to take medications as directed *Follow up with your primary care provider in 2-3 days or call [phone] *Return to ER if you should have palpitations chest pain shortness of breath dizziness lightheadedness or any new, worsening or concerning symptoms Prescriptions: No Action albuterol sulfate 90 mcg/actuation HFA aerosol inhaler 2 puff inhalation Q4-6H PRN (Reason: shortness of breath or wheezing) Qty: 18 0RF lorazepam [Ativan] 0.5 mg tablet 0.5 - 1 mg PO DAILY PRN (Reason: anxiety) Qty: 40 2RF buspirone 10 mg tablet 10 mg PO BID Qty: 180 1RF lisinopril 20 mg tablet 10 mg PO DAILY 0RF Hold Instructions: needs labs diclofenac sodium 75 mg tablet,delayed release (DR/EC) 75 mg PO DAILY PRN (Reason: muscle pain) Qty: 30 11RF Hold Instructions: Needs labs cyclobenzaprine 5 mg tablet 5 mg PO TID PRN (Reason: muscle spasm) Qty: 10 11RF paroxetine HCl [Paxil] 20 mg tablet 20 mg PO DAILY Qty: 30 0RF budesonide-formoterol [Symbicort] 80-4.5 mcg/actuation HFA aerosol inhaler 2 puff inhalation BID 0RF Referrals: Pj Grubbs MD [Primary Care Provider] -
--- NOTE | 2021-07-23 08:37 | DI.RAD.S_ITS ---
PROCEDURE: XR CHEST 1V INDICATIONS: palpitations TECHNIQUE: One view of the chest was acquired. COMPARISON: [facility], [place], PET NECK TO MID THIGH, 10/24/2020, 9:34. [facility], CT, CT CHEST W CON, 07/18/2020, 11:11. [facility], CR, XR CHEST 1V, 07/18/2020, 9:52. FINDINGS: Surgical changes and devices: None. Lungs and pleura: Lungs are clear of acute opacities. 1.2 centimeter nodule in the left upper lobe is stable compared to prior exams. No pleural effusions or pneumothorax. Mediastinum: Mediastinal contours appear normal. Heart size is normal. Bones and chest wall: No suspicious bony lesions. Overlying soft tissues appear unremarkable. IMPRESSION: No acute cardiopulmonary disease process. Dictated by: Priscilla Gtz MD, PhD on 07/23/2021 at 9:03 Approved by: Priscilla Gtz MD, PhD on 07/23/2021 at 9:04
[2021-07-23 08:43] LABS: Add Manual Diff / Slide Review NO; Basophils Absolute Auto 100 /uL (0-100); Basophils Percent Auto 0.9 % (0-2); Eosinophils Absolute Auto 300 /uL (0-450); Eosinophils Percent Auto 2.5 % (2-4); Hematocrit 36.1 % (36-46); Hemoglobin 12.4 g/dL (12.0-16.0); Lymphocytes Absolute Auto 3000 /uL (1100-4500); Lymphocytes Percent Auto 29.6 % (25-40); Mean Corpuscular HGB Conc 34.5 % (30-36); Mean Corpuscular Hemoglobin 31.1 PG (26-34); Mean Corpuscular Volume 90.3 fL (80-100); Monocytes Absolute Auto 600 /uL (0-900); Monocytes Percent Auto 5.6 % (3-14); Neutrophils Absolute Auto 6200 /uL (1500-7000); Neutrophils Percent Auto 61.4 % (50-75); Platelet Count 428 X10^3/uL (150-400); Red Cell Distribution Width 14.3 % (11.6-14.8); White Blood Cell Count 10.1 X10^3/uL (4.5-11.0)
[2021-07-23 08:52] LABS: Alanine Aminotransferase 23 IU/L (<35); Albumin 4.1 g/dL (3.5-5.0); Albumin Globulin Ratio 1.3 (1.0-2.8); Alkaline Phosphatase 79 U/L (38-126); Aspartate Aminotransferase 34 IU/L (14-36); BUN Creatinine Ratio 21.4 (6-22); Bilirubin Total 0.3 mg/dL (0.2-1.3); Blood Urea Nitrogen 18 mg/dL (7-17); Calcium 9.1 mg/dL (8.4-10.2); Carbon Dioxide 28 mmol/L (22-32); Chloride 105 mmol/L (98-107); Creatine Kinase 263 U/L (30-135); Estimated Glomerular Filt Rate > 60 mL/min (>60); Globulin 3.1 g/dL (1.7-4.1); Glucose 106 mg/dL (80-110); HEMOLYSIS < 15 (0-50); Lipase 75 U/L (23-300); Magnesium 1.9 mg/dL (1.6-2.3); Potassium 4.2 mmol/L (3.4-5.1); Sodium 137 mmol/L (137-145); Total Protein 7.2 g/dL (6.3-8.2)
[2021-07-23 09:03] LABS: NT-proBNP (BNP-Adult 18+) 205 pg/mL (<125); Troponin I < 0.012 ng/mL (0.01-0.034)
[2021-07-23 09:06] LABS: CKMB % Relative Index 1.8 % (1.5-5.0)
[2021-07-23 09:32] LABS: Thyroid Stimulating Hormone 3.57 uIU/mL (0.47-4.68)
== END 2021-07-23 10:22 | disposition home or self-care (01) ==
PROVIDERS: Emergency Provider Emergency Medicine; PCP Student in an Organized Health Care Education/Training Program
DX: R00.2 Palpitations (principal)
CPT/HCPCS: 36415; 71045; 80053; 82550; 82553; 83690; 83735; 83880; 84443; 84484; 85025; 93005; 99283

== ENCOUNTER → 2021-08-06 08:34 | Outpatient (CLI) | payer MEDICARE, OTHER, SELFPAY ==
--- NOTE | 2021-08-06 | DI.MG.S_ITS ---
BILATERAL DIGITAL DIAGNOSTIC MAMMOGRAM 3D/2D: 08/06/2021 CLINICAL: Short term follow up for the left breast. Due bilat. Comparison is made to exams dated: 10/03/2020 mammogram and 09/11/2020 mammogram - [facility]. The tissue of both breasts is heterogeneously dense. This may lower the sensitivity of mammography. There are segmental fine large rodlike punctate calcifications in the left breast central to the nipple middle depth. These are not significantly changed. Punctate diffuse calcifications in the right breast. No other significant masses, calcifications, or other findings are seen in either breast. IMPRESSION: PROBABLY BENIGN The segmental fine large rodlike punctate calcifications in the left breast resemble secretory calcifications and are probably benign. A follow-up mammogram in 12 months is recommended to demonstrate long-term stability. Exam findings were conveyed to the patient. This exam was interpreted at Station ID: [id number]. NOTE: For mammograms, a report in lay terms will be sent to the patient. Approximately 15% of breast malignancies will not be visualized mammographically. In the management of a palpable breast mass, a negative mammogram must not discourage biopsy of a clinically suspicious lesion. Electronically Signed By: Soy Contreras M.D. slc/:08/06/2021 09:10:32 letter sent: Followup Recommended ACR BI-RADS Category 3: Probably benign 3343F
== END ==
PROVIDERS: PCP Student in an Organized Health Care Education/Training Program; Referring Provider Student in an Organized Health Care Education/Training Program; Visit Provider Student in an Organized Health Care Education/Training Program
DX: R92.8 Other abnormal and inconclusive findings on diagnostic imaging of breast (principal); R92.1 Mammographic calcification found on diagnostic imaging of breast
CPT/HCPCS: 77066; G0279

== ENCOUNTER → 2021-08-07 09:47 | Outpatient (CLI) | payer MEDICARE, OTHER, SELFPAY ==
--- NOTE | 2021-08-22 16:35 | PM.CARDMON.1 ---
Assistant Business Manager Report Referral & Results Date Patient Seen: 08/07/21 Requesting provider: Pj Grubbs Indication: Palpitations Duration of monitoring (days): 11 Diary information: There were 2 patient diary entries and 2 patient triggered events All 4 of these patient events were associated with sinus rhythm only Data: Minimum heart rate identified was 60 beats per minute at 08:59 on 08/11/2021 Maximum sinus heart rate was 129 beats per minute at 14:24 on 08/16/2021 Maximum overall heart rate was 240 beats per minute at 02:53 on 08/17/2021 during a run of nonsustained ventricular tachycardia Less than 1% of identified beats were ventricular or supraventricular ectopic in origin, which would classify them as rare. There were 13 runs of SVT with the fastest lasting 4 beats at a rate of 210 beats per minute the longest lasting 15 beats There were 2 runs of nonsustained ventricular tachycardia the fastest being 12 beats at a rate of 240 as above, the longest run of ventricular tachycardia was also the fastest There were no pauses of 3 seconds or longer or episodes of atrial fibrillation identified on this study Impression: 10+ day patient monitor demonstrating rare brief runs of nonsustained monomorphic ventricular tachycardia as above as well as rare brief runs of SVT Clinical correlation suggested
== END ==
PROVIDERS: PCP Student in an Organized Health Care Education/Training Program; Referring Provider Student in an Organized Health Care Education/Training Program; Visit Provider Student in an Organized Health Care Education/Training Program
DX: R00.2 Palpitations (principal)
CPT/HCPCS: 93246; 93248

== ENCOUNTER → 2022-08-24 15:55 | Outpatient (CLI) | payer MEDICARE, OTHER, SELFPAY ==
--- NOTE | 2022-08-24 16:00 | DI.RAD.S_ITS ---
PROCEDURE: XR SHOULDER RT MIN 2V INDICATIONS: rt shoulder pain TECHNIQUE: 3 views of the shoulder were acquired. COMPARISON: None. FINDINGS: Bones: No fractures or dislocations. No suspicious bony lesions. Visualized ribs appear intact. There are degenerative changes involving the acromioclavicular and glenohumeral joints. Coracoclavicular and acromioclavicular intervals are maintained. Soft tissues: No suspicious soft tissue calcifications. IMPRESSION: Degenerative changes of the acromioclavicular and glenohumeral joints. No acute fracture or dislocation. Dictated by: Silvio Luis M.D. on 08/24/2022 at 17:54 Approved by: Silvio Luis M.D. on 08/24/2022 at 17:56
[2022-08-24 18:05] LABS: Add Manual Diff / Slide Review NO; Basophils Absolute Auto 100 /uL (0-100); Basophils Percent Auto 0.6 % (0-2); Eosinophils Absolute Auto 300 /uL (0-450); Eosinophils Percent Auto 2.3 % (2-4); Hematocrit 36.6 % (36-46); Hemoglobin 12.5 g/dL (12.0-16.0); Lymphocytes Absolute Auto 3600 /uL (1100-4500); Lymphocytes Percent Auto 30.6 % (25-40); Mean Corpuscular HGB Conc 34.1 % (30-36); Mean Corpuscular Volume 90.9 fL (80-100); Monocytes Absolute Auto 600 /uL (0-900); Monocytes Percent Auto 5.3 % (3-14); Neutrophils Absolute Auto 7300 /uL (1500-7000); Neutrophils Percent Auto 61.2 % (50-75); Platelet Count 465 X10^3/uL (150-400); Red Blood Cell Count 4.03 X10^6/uL (4.0-5.2); White Blood Cell Count 11.9 X10^3/uL (4.5-11.0)
[2022-08-24 18:07] LABS: Alanine Aminotransferase 26 IU/L (<35); Albumin Globulin Ratio 1.3 (1.0-2.8); Alkaline Phosphatase 74 U/L (38-126); Aspartate Aminotransferase 32 IU/L (14-36); BUN Creatinine Ratio 24.7 (6-22); Bilirubin Total 0.2 mg/dL (0.2-1.3); Blood Urea Nitrogen 19 mg/dL (7-17); Calcium 8.8 mg/dL (8.4-10.2); Carbon Dioxide 27 mmol/L (22-32); Chloride 103 mmol/L (98-107); Cholesterol 179 mg/dL (140-199); Estimated Glomerular Filt Rate > 60 mL/min (>60); Globulin 3.2 g/dL (1.7-4.1); Glucose 99 mg/dL (80-110); HDL Cholesterol 53 mg/dL (40-60); HEMOLYSIS < 15 (0-50); LDL Cholesterol Calculated 107 mg/dL (<100); Potassium 3.8 mmol/L (3.4-5.1); Sodium 139 mmol/L (137-145); Total Protein 7.2 g/dL (6.3-8.2); Triglycerides 95 mg/dL (35-150)
[2022-08-24 18:37] LABS: TSH w/ Reflex to FT4 1.87 uIU/mL (0.47-4.68)
[2022-08-26 03:15] LABS: Labcorp Hemoglobin (Hb) A1c 6.1 % (4.8-5.6)
== END ==
PROVIDERS: PCP Student in an Organized Health Care Education/Training Program; Referring Provider Pediatrics; Visit Provider Pediatrics
DX: M25.511 Pain in right shoulder (principal); I10 Essential (primary) hypertension; E78.2 Mixed hyperlipidemia; F41.1 Generalized anxiety disorder; R73.03 Prediabetes
CPT/HCPCS: 36415; 73030; 80053; 80061; 83036; 84443; 85025

== ENCOUNTER → 2022-09-11 07:59 | Outpatient (CLI) | payer MEDICARE, OTHER, SELFPAY ==
--- NOTE | 2022-09-11 | DI.MRI.S_ITS ---
PROCEDURE: MR SHOULDER RT WO CON INDICATIONS: Right shoulder pain TECHNIQUE: Noncontrast oblique coronal T2 fast spin echo with fat saturation, oblique sagittal T1 spin echo and T2 fast spin echo with fat saturation, axial T1 spin echo and T2 fast spin echo with fat saturation through the shoulder. COMPARISON: [facility], CR, XR SHOULDER RT MIN 2V, 08/24/2022, 16:32. FINDINGS: Image quality: Excellent. Rotator cuff: There is full-thickness tearing of the supraspinatus tendon and likely the anterior fibers of the infraspinatus tendon measuring approximately 1.1 cm in anterior-posterior dimension. There is low-grade partial measuring up to tearing of the adjacent infraspinatus tendon. Fluid is seen tracking medially along the infraspinatus tendon to the myotendinous junction. The teres minor and subscapularis tendons are intact. There is no significant rotator cuff muscle atrophy. Bones and bursae: No acute trabecular bone injury or fracture. Chronic traction cystic changes are seen at the posterosuperior humeral head and greater tuberosity near the rotator cuff tendon insertions. Mild degenerative spurring is seen in the glenoid rim. There are moderate degenerative changes at the acromioclavicular joint with subchondral cystic changes and marginal osteophyte formation. A small amount of fluid in the subacromial/subdeltoid bursa communicates with a small glenohumeral effusion. Capsule and soft tissues: There is mild diffuse labral degeneration. The proximal biceps long head tendon appears to be intact. There is mild partial effacement of the fat in the rotator interval. Glenohumeral ligaments are grossly intact. IMPRESSION: 1. Full-thickness tearing of the posterior supraspinatus tendon and anterior infraspinatus tendon measuring 1.1 cm in anterior-posterior dimension with proximal tendon retraction measuring up to 1.5 cm. Additional foci of low grade partial intrasubstance tearing are seen in the remainder of the infraspinatus tendon. 2. Mild diffuse labral degeneration. Mild degenerative changes in the glenohumeral joint. 3. Moderate acromioclavicular joint osteoarthrosis. 4. Small subacromial/subdeltoid bursal effusion communicates with a small glenohumeral effusion. Approved by: Shreyas Justin M.D. on 09/11/2022 at 12:33
--- NOTE | 2022-09-11 08:02 | DI.RAD.S_ITS ---
Bone Density Report Name: NAYAN MALONE Age: 77 Sex: Female Ethnicity: White Date of : 1945 Indication: osteopenia; Referring Provider: JOHN BAI Study: Bone densitometry was performed. Exam Date: September 11, 2022 Accession number: [id number] Bone Density: Region BMD T-score Z-score Classification AP Spine(L1-L4) 1.077 0.3 2.7 Normal Femoral Neck (Left) 0.698 -1.4 0.8 Osteopenia Total Hip (Left) 0.780 -1.3 0.5 Osteopenia Femoral Neck (Right) 0.606 -2.2 -0.1 Osteopenia Total Hip (Right) 0.724 -1.8 0.0 Osteopenia Total Hip Mean 0.752 -1.6 0.3 Osteopenia World Health Organization criteria for BMD impression classify patients as: Normal (T-score at or above -1.0), Osteopenia (T-score between -1.0 and -2.5), or Osteoporosis (T-score at or below -2.5). 10-year Fracture Risk(1): Major Osteoporotic Fracture 15% Hip Fracture 6.1% Reported Risk Factors: [place] (), Neck BMD=0.606, BMI=31.1, smoking (1) FRAX(R) Version 3.08. Fracture probability calculated for an untreated patient. Fracture probability may be lower if the patient has received treatment. Previous Exams: -- Region Exam Age BMD T-score BMD Change BMD Change Date g/cm2 vs Baseline vs Previous -- AP Spine (L1-L4) 09/11/2022 77 1.077 0.3 -0.005 (-0.4%)# -0.005 (-0.4%)# 07/31/2020 74 1.082 0.3 Total Hip(Left) 09/11/2022 77 0.780 -1.3 0.016 (2.1%)# 0.016 (2.1%)# 07/31/2020 74 0.764 -1.5 Total Hip(Right) 09/11/2022 77 0.724 -1.8 0.025 (3.6%)# 0.025 (3.6%)# 07/31/2020 74 0.698 -2.0 -- *Denotes significance at 95% confidence level, LSC for AP Spine = 0.022 g/cm2, LSC for Total Hip = 0.027 g/cm2 # Denotes dissimilar scan types or analysis methods Impression: The patient has low bone mass, based on the Right Femoral Neck T-score. The patient has an estimated ten-year risk of hip fracture of 6.1% and an estimated ten-year risk of major fracture of 15%, based on the WHO FRAX algorithm. The patient has risk factors, including: smoking. No significant bone loss was observed. Discussion: BONE DENSITY IS LOW AT ONE OR MORE SKELETAL SITES. THE PATIENT'S BMD AND CLINICAL RISK FACTORS CONTRIBUTE TO THIS PATIENT'S INCREASED RISK OF FRACTURE. This patient's lowest T-score is low at one or more skeletal sites. It meets the World Health Organization's (WHO) criteria for low bone mass (T-score between -1.0 and -2.5). The patient's 10-year risk of hip fracture as calculated by FRAX exceeds the threshold where pharmacological therapy is recommended by the National Osteoporosis Foundation (NOF). However, all treatment decisions require clinical judgment and consideration of individual patient factors, including patient preferences, comorbidities, previous drug use, risk factors not captured in the FRAX model (e.g., frailty, falls, vitamin D deficiency, increased bone turnover, interval significant decline in bone density) and possible under or overestimation of fracture risk by FRAX. The patient should follow a healthful lifestyle (good nutrition with adequate calcium and vitamin D, and appropriate weight-bearing exercise). Follow-Up: Consider a repeat BMD and Vertebral Fracture Assessment (VFA) exam in 2 years or sooner if medically necessary, to reassess this patient's status. Reported by: RUFUS MCCORMACK MD on 09/11/2022 3:02:00 PM.
--- NOTE | 2022-09-11 08:02 | DI.MG.S_ITS ---
BILATERAL DIGITAL DIAGNOSTIC MAMMOGRAM 3D/2D: 09/11/2022 CLINICAL: Short term follow up of the left breast, due for bilateral imaging. Comparison is made to exams dated: 08/06/2021 mammogram, 10/03/2020 mammogram, and 09/11/2020 mammogram - [facility]. Both breasts are heterogeneously dense, which may obscure small masses (category c / 51-75% glandular tissue). There are segmental fine large rodlike punctate calcifications in the left breast central to the nipple middle depth. These are not significantly changed. No other significant masses, calcifications, or other findings are seen in either breast. IMPRESSION: BENIGN The segmental fine large rodlike punctate calcifications in the left breast resemble secretory calcifications and have demonstrated two years of stability. This is consistent with a benign process. There is no mammographic evidence of malignancy. Return to annual mammogram screening schedule is recommended. Findings and recommendations were conveyed to the patient during today's evaluation. Based on the Tyrer Cuzick model (a risk assessment model) the patient's lifetime risk is 5.3% and her 10 year risk is 0.0%. According to the ACR, ACS, and NCCN guidelines, an annual breast MRI exam along with mammogram is recommended if the patient's lifetime risk is 20% or greater. This exam was interpreted at Station ID: [id number]. NOTE: For mammograms, a report in lay terms will be sent to the patient. Approximately 15% of breast malignancies will not be visualized mammographically. In the management of a palpable breast mass, a negative mammogram must not discourage biopsy of a clinically suspicious lesion. Electronically Signed By: Silvio Luis M.D. aty/:09/11/2022 12:16:55 letter sent: Normal Exam ACR BI-RADS Category 2: Benign Finding(s) 3342F
== END ==
PROVIDERS: PCP Pediatrics; Referring Provider Orthopaedic Surgery; Visit Provider Orthopaedic Surgery
DX: M75.121 Complete rotator cuff tear or rupture of right shoulder, not specified as traumatic (principal); Z12.31 Encounter for screening mammogram for malignant neoplasm of breast; M19.011 Primary osteoarthritis, right shoulder; M25.411 Effusion, right shoulder; M85.851 Other specified disorders of bone density and structure, right thigh; Z78.0 Asymptomatic menopausal state
CPT/HCPCS: 73221; 77066; 77080; G0279

== ENCOUNTER → 2023-05-17 11:00 | Outpatient (CLI) | payer MEDICARE, OTHER, SELFPAY ==
--- NOTE | 2023-05-17 11:30 | DI.CT.S_ITS ---
PROCEDURE: CT CHEST WO CON INDICATIONS: follow up nodule TECHNIQUE: Noncontrast 5 mm thick sections acquired from the pulmonary apices to the posterior costophrenic angles. 1 mm lung window, 5 mm thick coronal and sagittal and 7 mm axial MIP reformats were then acquired. For radiation dose reduction, the following was used: automated exposure control, adjustment of mA and/or kV according to patient size. COMPARISON: [facility], CT, CT CHEST WITHOUT CONTRAST, 01/01/2022, 9:05. FINDINGS: Image quality: Diagnostic. Lower Neck: No enlarged lymph nodes. Thyroid: No thyroid nodules which require sonographic follow up, per consensus guidelines. Axillae: No enlarged lymph nodes. Chest Wall: Unremarkable. Bones: No acute fractures. No aggressive appearing lytic or blastic osseous lesions. Moderate multilevel degenerative changes of the spine. Lungs and Pleura: No pneumothorax or pleural effusions. Compared to CT chest dated January 01, 2022, no new or enlarging solid pulmonary nodules or consolidation. Stable left upper lobe solid, noncalcified pulmonary nodule measuring 1.4 x 1.4 cm (), previously 1.4 x 1.3 cm (). Stable right upper lobe subpleural solid pulmonary nodule measuring 0.7 x 0.4 cm (64). Severe apical predominant centrilobular and paraseptal emphysema. A patent central airways. Heart: Heart size is normal. No pericardial effusion. Moderate to severe three-vessel coronary calcifications. Thoracic Vessels: The aorta and pulmonary arteries demonstrate normal size. Mild calcification of the thoracic aorta. Mediastinum and Jessica: No enlarged lymph nodes. Esophagus: No wall thickening. Small hiatal hernia. Upper Abdomen: Visualized upper abdomen solid organs and bowel loops appear normal. Mild calcification of the abdominal aorta. IMPRESSION: 1. Compared to CT chest dated January 01, 2022, no new or enlarging solid pulmonary nodules. 2. Stable left upper lobe solid, noncalcified pulmonary nodule measuring 1.4 x 1.4 cm. 3. Severe emphysema. 4. Moderate to severe three-vessel coronary calcification. Dictated by: Florian Otoole M.D. on 05/17/2023 at 14:31 Approved by: Florian Otoole M.D. on 05/17/2023 at 14:36
== END ==
PROVIDERS: PCP Family Medicine; Referring Provider Internal Medicine Critical Care Medicine; Visit Provider Internal Medicine Critical Care Medicine
DX: R91.8 Other nonspecific abnormal finding of lung field (principal); J43.2 Centrilobular emphysema; I25.10 Atherosclerotic heart disease of native coronary artery without angina pectoris; K44.9 Diaphragmatic hernia without obstruction or gangrene
CPT/HCPCS: 71250

== ENCOUNTER → 2024-01-31 08:06 | Outpatient (CLI) | payer MEDICARE, OTHER, SELFPAY ==
--- NOTE | 2024-01-31 08:07 | DI.MG.S_ITS ---
BILATERAL DIGITAL SCREENING MAMMOGRAM 3D/2D WITH CAD: 01/31/2024 CLINICAL: Routine screening. Comparison is made to exams dated: 09/11/2022 mammogram, 08/06/2021 mammogram, and 09/11/2020 mammogram - [facility]. The breasts are heterogeneously dense, which may obscure small masses (category c / 51-75% glandular tissue). Current study was also evaluated with a Computer Aided Detection (CAD) system. There are benign calcifications in both breasts. No significant masses, calcifications, or other findings are seen in either breast. There has been no significant interval change. IMPRESSION: BENIGN There is no mammographic evidence of malignancy. A 1 year screening mammogram is recommended. Based on the Tyrer Cuzick model (a risk assessment model) the patient's lifetime risk is 4.8% and her 10 year risk is 0.0%. According to the ACR, ACS, and NCCN guidelines, an annual breast MRI exam along with mammogram is recommended if the patient's lifetime risk is 20% or greater. This exam was interpreted at Station ID: [id number]. NOTE: For mammograms, a report in lay terms will be sent to the patient. Approximately 15% of breast malignancies will not be visualized mammographically. In the management of a palpable breast mass, a negative mammogram must not discourage biopsy of a clinically suspicious lesion. Electronically Signed By: Silvio garcia/meenu:01/31/2024 08:28:35 letter sent: Normal Exam ACR BI-RADS Category 2: Benign
[2024-01-31 09:29] LABS: Add Manual Diff / Slide Review NO; Basophils Absolute Auto 100 /uL (0-100); Eosinophils Absolute Auto 300 /uL (0-450); Hemoglobin 12.2 g/dL (12.0-16.0); Lymphocytes Absolute Auto 2900 /uL (1100-4500); Lymphocytes Percent Auto 28.2 % (25-40); Mean Corpuscular Volume 94.1 fL (80-100); Monocytes Absolute Auto 400 /uL (0-900); Monocytes Percent Auto 4.1 % (3-14); Neutrophils Absolute Auto 6600 /uL (1500-7000); Neutrophils Percent Auto 63.7 % (50-75); Platelet Count 471 X10^3/uL (150-400); Red Blood Cell Count 3.82 X10^6/uL (4.0-5.2); Red Cell Distribution Width 13.5 % (11.6-14.8); White Blood Cell Count 10.4 X10^3/uL (4.5-11.0)
[2024-01-31 09:54] LABS: Hemoglobin A1C% w Est Avg Glu 5.7 % (4.0-6.0)
== END ==
PROVIDERS: PCP Family Medicine; Referring Provider Family Medicine; Visit Provider Family Medicine
DX: Z12.31 Encounter for screening mammogram for malignant neoplasm of breast (principal); I25.10 Atherosclerotic heart disease of native coronary artery without angina pectoris; J44.9 Chronic obstructive pulmonary disease, unspecified; R73.03 Prediabetes; E78.2 Mixed hyperlipidemia; I10 Essential (primary) hypertension; R92.333 Mammographic heterogeneous density, bilateral breasts
CPT/HCPCS: 36415; 77063; 77067; 83036; 85025

== ENCOUNTER → 2024-02-03 11:55 | Outpatient (CLI) | payer MEDICARE, OTHER, SELFPAY ==
--- NOTE | 2024-02-03 11:56 | DI.CT.S_ITS ---
PROCEDURE: CT CHEST WO CON INDICATIONS: nodule follow up TECHNIQUE: Noncontrast 5 mm thick sections acquired from the pulmonary apices to the posterior costophrenic angles. 1 mm lung window, 5 mm thick coronal and sagittal and 7 mm axial MIP reformats were then acquired. For radiation dose reduction, the following was used: automated exposure control, adjustment of mA and/or kV according to patient size. COMPARISON: [facility], CT, CT CHEST WO CON, 05/17/2023, 11:12. [facility], CT, CT CHEST WITHOUT CONTRAST, 01/01/2022, 9:05. FINDINGS: Image quality: Diagnostic Lungs and pleura: Emphysematous changes, moderate to severe. No dense airspace disease or pleural effusions. Scattered atelectasis/scarring especially at the bases. No new or enlarging suspicious pulmonary nodules. Lobulated nodule in the left upper lobe image measures 1.5 cm , 1.4 cm in 12/2021 and 1.6 cm in 05/17/2023. Other smaller nodules are unchanged. Mediastinum, heart, and esophagus: No hiatal hernia. Coronary calcifications. Annular calcifications. No pathologic lymph nodes by size criteria. Prominent pericardial folds again seen, similar to prior Chest wall and thyroid: Unremarkable thyroid and chest wall Upper abdomen: No gross abnormality on these noncontrast images Bones: There are degenerative changes. IMPRESSION: Left upper lobe nodule is stable since at least 01/01/2022. Background severe emphysema. Given patient's presumed risk factors, consider enrollment in low-dose lung cancer screening versus yearly chest CT surveillance if applicable. Other findings above. Dictated by: Brando Ashby M.D. on 02/03/2024 at 16:49 Approved by: Brando Ashby M.D. on 02/03/2024 at 16:54
== END ==
PROVIDERS: PCP Family Medicine; Referring Provider Internal Medicine Critical Care Medicine; Visit Provider Internal Medicine Critical Care Medicine
DX: R91.1 Solitary pulmonary nodule (principal); J43.9 Emphysema, unspecified
CPT/HCPCS: 71250